=== PATIENT | male | born 1940 | race Caucasian/White ===

== ENCOUNTER 2022-03-04 11:49 | Inpatient (IN) | payer BC, OTHER ==
[2022-03-04] MEDS ORDERED: ACETAMINOPHEN 325 MG TABLET (FP) PO ONE (12:00)
[2022-03-04] MEDS ORDERED: DIPHTH,PERTUSS(ACELL),TET 0.5 ML DISP.SYRIN IM ONE (12:00)
[2022-03-04] MEDS ORDERED: LABETALOL HCL 5 MG/1 ML (100MG/20 ML VIAL) IVPUSH ONE ×3 (14:44→17:30)
[2022-03-04] MEDS ORDERED: LABETALOL HCL 5 MG/1 ML (100MG/20 ML VIAL) ONE (14:44)
[2022-03-04 14:54] LABS: BASO % 0.8 % (0-2.0); EOS % 1.5 % (0-4.5); HEMATOCRIT 47.7 % (35.4-49); HEMOGLOBIN 15.8 GM/dL (11.7-16.9); LYMPH % 11.3 % (8-40); MCH 29.7 pg (25.7-33.7); MCHC 33.1 g/dl (32.0-35.9); MEAN CELL VOLUME 89.7 fl (80-96); MEAN PLT VOLUME 7.7 fl (7.5-11.1); MONO % 8.3 % (3.8-10.2); NEUT % 78.1 % (42.8-82.8); PLATELET COUNT 205 10^3/uL (134-434); RBC 5.32 M/mm3 (4.00-5.60); RDW 14.4 % (11.9-15.9); WHITE BLOOD COUNT 10.2 K/mm3 (4.0-10.0)
[2022-03-04 15:03] LABS: INR 1.03 (0.83-1.09); PROTHROMBIN TIME (PATIENT) 11.9 SEC (9.7-13.0)
[2022-03-04 15:06] LABS: ACTIVATED PTT 31.7 SECONDS (25.2-36.5)
[2022-03-04 15:22] LABS: CALCIUM 8.9 mg/dL (8.5-10.1)
[2022-03-04 15:23] LABS: ALBUMIN 3.5 g/dl (3.4-5.0); BLOOD UREA NITROGEN 35.4 mg/dL (7-18)
[2022-03-04 15:26] LABS: CREATININE 1.7 mg/dL (0.55-1.3)
[2022-03-04 15:27] LABS: TOT PROT 7.4 g/dl (6.4-8.2)
[2022-03-04 15:28] LABS: BILIRUBIN,TOTAL 0.5 mg/dL (0.2-1)
[2022-03-04] MEDS ORDERED: ACETAMINOPHEN 325 MG TABLET (FP) PO PRN (16:01)
[2022-03-04 17:19] LABS: EPI CELLS 1 /uL (0-25.1); HYALINE CASTS 0 /uL (0-3.1); PH,URINE 6.5 (5.0-8.0); URINE APPEARANCE CLEAR; URINE BACTERIA 10 /uL (0-1359); URINE BILIRUBIN NEGATIVE (NEGATIVE); URINE COLOR YELLOW; URINE GLUCOSE (UA) TRACE (NEGATIVE); URINE KETONE NEGATIVE (NEGATIVE); URINE LEUK ESTERASE NEGATIVE (NEGATIVE); URINE NITRITE NEGATIVE (NEGATIVE); URINE PROTEIN 1+ (NEGATIVE); URINE RBC 10 /uL (0-23.9); URINE UROBILINOGEN 0.2 mg/dL (0.2-1.0); URINE WBC 1 /uL (0-25.8)
[2022-03-04] MEDS ORDERED: PNEUMOC 20-VAL CONJ-DIP CRM/PF 0.5 ML SYRINGE IM ONE (20:00)
[2022-03-04] MEDS: MUPIROCIN 2% TOPICAL OINTMENT FOR DECOLONIZATION NS SCH (21:22)
[2022-03-04] MEDS: CHLORHEXIDINE GLUCONATE 4% CLEANSER FOR DECOLONIZATION TP SCH (21:22)
[2022-03-04] MEDS: levETIRAcetam 500 MG TABLET (FP) PO SCH (21:22)
[2022-03-04] MEDS: INSULIN SLIDING SCALE (NOVOLOG) 1 VIAL SQ SCH (21:40)
[2022-03-05] MEDS: INSULIN SLIDING SCALE (NOVOLOG) 1 VIAL SQ SCH ×4 (06:29→21:40)
[2022-03-05] MEDS: LABETALOL HCL 5 MG/1 ML (100MG/20 ML VIAL) IVPUSH PRN ×2 (06:34→18:19)
[2022-03-05 07:26] LABS: BASO % 0.8 % (0-2.0); EOS % 2.1 % (0-4.5); HEMATOCRIT 44.7 % (35.4-49); HEMOGLOBIN 15.1 GM/dL (11.7-16.9); LYMPH % 10.5 % (8-40); MCH 30.5 pg (25.7-33.7); MCHC 33.9 g/dl (32.0-35.9); MEAN CELL VOLUME 90.1 fl (80-96); MEAN PLT VOLUME 7.7 fl (7.5-11.1); MONO % 7.7 % (3.8-10.2); NEUT % 78.9 % (42.8-82.8); PLATELET COUNT 172 10^3/uL (134-434); RBC 4.96 M/mm3 (4.00-5.60); RDW 14.8 % (11.9-15.9); WHITE BLOOD COUNT 10.8 K/mm3 (4.0-10.0)
[2022-03-05 07:31] LABS: BLOOD UREA NITROGEN 32.8 mg/dL (7-18); CALCIUM 8.7 mg/dL (8.5-10.1)
[2022-03-05 07:32] LABS: ALBUMIN 3.3 g/dl (3.4-5.0)
[2022-03-05 07:35] LABS: PHOSPHOROUS 2.9 mg/dL (2.5-4.9)
[2022-03-05 07:36] LABS: BILIRUBIN,TOTAL 0.7 mg/dL (0.2-1); TOT PROT 6.7 g/dl (6.4-8.2)
[2022-03-05 07:37] LABS: CREATININE 1.6 mg/dL (0.55-1.3)
[2022-03-05] MEDS ORDERED: LEVOTHYROXINE NA 112 MCG TABLET (FP) PO ONE (08:45)
[2022-03-05] MEDS ORDERED: LEVOTHYROXINE NA 112 MCG TABLET (FP) PO SCH (09:00)
[2022-03-05] MEDS: levETIRAcetam 500 MG TABLET (FP) PO SCH ×2 (10:03→21:06)
[2022-03-05] MEDS: TORSEMIDE 10 MG TABLET PO SCH (10:04)
[2022-03-05] MEDS: MUPIROCIN 2% TOPICAL OINTMENT FOR DECOLONIZATION NS SCH ×2 (10:05→21:07)
[2022-03-05] MEDS ORDERED: SODIUM CHLORIDE 250 ML IV STA (14:44)
[2022-03-05] MEDS: DONEPEZIL HCL 10 MG TABLET (FP) PO SCH (21:07)
[2022-03-05] MEDS: ATORVASTATIN CA 40 MG TABLET (FP) PO SCH (21:07)
[2022-03-05] MEDS: CHLORHEXIDINE GLUCONATE 4% CLEANSER FOR DECOLONIZATION TP SCH (21:07)
[2022-03-06] MEDS: LEVOTHYROXINE NA 112 MCG TABLET (FP) PO SCH (05:04)
[2022-03-06] MEDS: INSULIN SLIDING SCALE (NOVOLOG) 1 VIAL SQ SCH ×4 (06:12→22:07)
[2022-03-06] MEDS: LABETALOL HCL 5 MG/1 ML (100MG/20 ML VIAL) IVPUSH PRN ×2 (06:30→13:36)
[2022-03-06 07:02] LABS: BASO % 0.8 % (0-2.0); EOS % 2.7 % (0-4.5); HEMATOCRIT 45.8 % (35.4-49); HEMOGLOBIN 15.9 GM/dL (11.7-16.9); LYMPH % 13.8 % (8-40); MCHC 34.7 g/dl (32.0-35.9); MEAN CELL VOLUME 89.4 fl (80-96); MEAN PLT VOLUME 7.9 fl (7.5-11.1); NEUT % 74.7 % (42.8-82.8); PLATELET COUNT 198 10^3/uL (134-434); RBC 5.12 M/mm3 (4.00-5.60); RDW 14.4 % (11.9-15.9); WHITE BLOOD COUNT 10.7 K/mm3 (4.0-10.0)
[2022-03-06 07:27] LABS: ALBUMIN 3.3 g/dl (3.4-5.0); BLOOD UREA NITROGEN 31.5 mg/dL (7-18); CALCIUM 8.4 mg/dL (8.5-10.1); MAGNESIUM 2.1 mg/dL (1.8-2.4)
[2022-03-06 07:30] LABS: CREATININE 1.5 mg/dL (0.55-1.3); PHOSPHOROUS 3.3 mg/dL (2.5-4.9)
[2022-03-06 07:32] LABS: BILIRUBIN,TOTAL 0.7 mg/dL (0.2-1)
[2022-03-06] MEDS: TORSEMIDE 10 MG TABLET PO SCH (09:31)
[2022-03-06] MEDS: MUPIROCIN 2% TOPICAL OINTMENT FOR DECOLONIZATION NS SCH ×2 (09:31→21:57)
[2022-03-06] MEDS: levETIRAcetam 500 MG TABLET (FP) PO SCH ×2 (09:31→21:57)
[2022-03-06] MEDS ORDERED: METOPROLOL TARTRATE 5 MG/5 ML VIAL IVPUSH ONE (09:45)
[2022-03-06] MEDS ORDERED: LABETALOL HCL 5 MG/1 ML (100MG/20 ML VIAL) IVPUSH ONE (10:05)
[2022-03-06] MEDS: amLODIPine BESYLATE 5 MG TABLET (FP) PO SCH (14:04)
[2022-03-06 15:07] VITALS: BMI 29.9
[2022-03-06] MEDS: ATORVASTATIN CA 40 MG TABLET (FP) PO SCH (21:57)
[2022-03-06] MEDS: CHLORHEXIDINE GLUCONATE 4% CLEANSER FOR DECOLONIZATION TP SCH (21:57)
[2022-03-06] MEDS: DONEPEZIL HCL 10 MG TABLET (FP) PO SCH (21:57)
[2022-03-07] MEDS: LEVOTHYROXINE NA 112 MCG TABLET (FP) PO SCH (06:22)
[2022-03-07] MEDS: INSULIN SLIDING SCALE (NOVOLOG) 1 VIAL SQ SCH ×2 (06:26→12:21)
[2022-03-07 06:51] LABS: BASO % 0.8 % (0-2.0); EOS % 0.8 % (0-4.5); HEMATOCRIT 45.7 % (35.4-49); HEMOGLOBIN 15.7 GM/dL (11.7-16.9); LYMPH % 9.5 % (8-40); MCH 30.6 pg (25.7-33.7); MCHC 34.3 g/dl (32.0-35.9); MEAN CELL VOLUME 89.3 fl (80-96); MEAN PLT VOLUME 7.9 fl (7.5-11.1); MONO % 5.4 % (3.8-10.2); NEUT % 83.5 % (42.8-82.8); PLATELET COUNT 181 10^3/uL (134-434); RBC 5.12 M/mm3 (4.00-5.60); RDW 14.5 % (11.9-15.9); WHITE BLOOD COUNT 11.3 K/mm3 (4.0-10.0)
[2022-03-07] MEDS: LABETALOL HCL 5 MG/1 ML (100MG/20 ML VIAL) IVPUSH PRN (07:17)
[2022-03-07 07:18] LABS: CALCIUM 8.2 mg/dL (8.5-10.1)
[2022-03-07 07:19] LABS: ALBUMIN 3.1 g/dl (3.4-5.0); BLOOD UREA NITROGEN 33.8 mg/dL (7-18); MAGNESIUM 2.1 mg/dL (1.8-2.4)
[2022-03-07 07:22] LABS: CREATININE 1.6 mg/dL (0.55-1.3); PHOSPHOROUS 3.4 mg/dL (2.5-4.9)
[2022-03-07 07:23] LABS: TOT PROT 6.6 g/dl (6.4-8.2)
[2022-03-07 07:24] LABS: BILIRUBIN,TOTAL 0.6 mg/dL (0.2-1)
[2022-03-07] MEDS: levETIRAcetam 500 MG TABLET (FP) PO SCH (09:40)
[2022-03-07] MEDS: amLODIPine BESYLATE 5 MG TABLET (FP) PO SCH (09:40)
[2022-03-07] MEDS: MUPIROCIN 2% TOPICAL OINTMENT FOR DECOLONIZATION NS SCH (09:40)
[2022-03-07] MEDS: TORSEMIDE 10 MG TABLET PO SCH (09:40)
[2022-03-07 15:05] VITALS: BP 165/87; PULSE 70; TEMP 98
== END 2022-03-07 15:00 | disposition home health service (06) | DRG 86 ==
LOC: JER 11:49 → JERBED 15:24 → JICU 16:48
PROVIDERS: ADMIT Internal Medicine Pulmonary Disease; ATTEND Nurse Practitioner Acute Care
DX: S06.5X0A Traumatic subdural hemorrhage without loss of consciousness, initial encounter (principal); N17.9 Acute kidney failure, unspecified; I13.0 Hypertensive heart and chronic kidney disease with heart failure and stage 1 through stage 4 chronic kidney disease, or unspecified chronic kidney disease; I50.22 Chronic systolic (congestive) heart failure; Q61.9 Cystic kidney disease, unspecified; S06.6X0A Traumatic subarachnoid hemorrhage without loss of consciousness, initial encounter; E03.9 Hypothyroidism, unspecified; E78.5 Hyperlipidemia, unspecified; I25.10 Atherosclerotic heart disease of native coronary artery without angina pectoris; F03.90 Unspecified dementia, unspecified severity, without behavioral disturbance, psychotic disturbance, mood disturbance, and anxiety; G93.9 Disorder of brain, unspecified; E11.51 Type 2 diabetes mellitus with diabetic peripheral angiopathy without gangrene; E11.22 Type 2 diabetes mellitus with diabetic chronic kidney disease; D32.0 Benign neoplasm of cerebral meninges; S52.124A Nondisplaced fracture of head of right radius, initial encounter for closed fracture; W01.0XXA Fall on same level from slipping, tripping and stumbling without subsequent striking against object, initial encounter; Y92.480 Sidewalk as the place of occurrence of the external cause; Z95.5 Presence of coronary angioplasty implant and graft; Z95.810 Presence of automatic (implantable) cardiac defibrillator
CPT/HCPCS: 0241U-QW; 36415; 70450-TC; 70470-TC; 71260-TC; 72125-TC; 73070-TC-RT-FY; 74177-TC; 76775-TC; 80053; 81003; 82962; 83036; 83735; 84100; 84443; 84484; 85025; 85610; 85730; 86850; 86900; 86901; 90677; 90715; 93005; 93010; 93971-TC; 97116-GP; 97161-GP; 99291; Q9967

== ENCOUNTER 2022-05-03 06:59 | Emergency (ER) | payer OTHER ==
[2022-05-03 08:17] VITALS: BP 154/84; PULSE 92; RESP 17; TEMP 97.8; BMI 30.1
== END 2022-05-03 08:40 | disposition home or self-care (01) ==
LOC: JER 06:59
DX: U07.1 COVID-19 (principal)
CPT/HCPCS: 0241U-QW; 99283-25

== ENCOUNTER 2022-06-10 17:54 | Inpatient (IN) | payer OTHER ==
[2022-06-10] MEDS ORDERED: ALBUTEROL SO4 2.5/IPRATROPIUM 0.5 INH SOL 3 ML VIAL.NEB. NEB ONE ×3 (18:39→21:42)
[2022-06-10 19:52] LABS: EOS % 2.6 % (0-4.5); HEMATOCRIT 44.4 % (35.4-49); HEMOGLOBIN 14.9 GM/dL (11.7-16.9); LYMPH % 18.2 % (8-40); MCH 30.8 pg (25.7-33.7); MCHC 33.4 g/dl (32.0-35.9); MEAN CELL VOLUME 92.2 fl (80-96); MONO % 9.8 % (3.8-10.2); NEUT % 68.4 % (42.8-82.8); PLATELET COUNT 227 10^3/uL (134-434); RBC 4.82 M/mm3 (4.00-5.60); RDW 14.4 % (11.9-15.9)
[2022-06-10 19:56] LABS: INR 1.14 (0.83-1.09); PROTHROMBIN TIME (PATIENT) 13.1 SEC (9.7-13.0)
[2022-06-10 20:01] LABS: VENOUS BASE EXCESS -1.2 mmol/L (-2-2); VENOUS PCO2 47.1 mmHg (38-52); VENOUS PH 7.342 (7.310-7.410)
[2022-06-10] MEDS ORDERED: FUROSEMIDE 40 MG/4 ML INJECTABLE VIAL IVPUSH ONE ×2 (20:02→21:46)
[2022-06-10 20:13] LABS: CALCIUM 8.3 mg/dL (8.5-10.1)
[2022-06-10 20:14] LABS: ALBUMIN 3.1 g/dl (3.4-5.0); BLOOD UREA NITROGEN 32.5 mg/dL (7-18)
[2022-06-10 20:17] LABS: CREATININE 1.9 mg/dL (0.55-1.3)
[2022-06-10 20:18] LABS: BILIRUBIN,TOTAL 0.5 mg/dL (0.2-1); TOT PROT 6.8 g/dl (6.4-8.2)
[2022-06-10] MEDS ORDERED: FUROSEMIDE 40 MG/4 ML INJECTABLE VIAL ONE ×2 (20:21→21:54)
[2022-06-10 20:22] LABS: N-TERMINAL BNP 1737.6 pg/ml (5-450)
[2022-06-10] MEDS ORDERED: methylPREDNISolone NA SUCC 125 MG/2 ML VIAL IVPUSH ONE (21:40)
[2022-06-10] MEDS ORDERED: methylPREDNISolone NA SUCC 125 MG/2 ML VIAL ONE (21:42)
[2022-06-11] MEDS ORDERED: LEVOTHYROXINE NA 112 MCG TABLET (FP) PO SCH (06:00)
[2022-06-11] MEDS: INSULIN SLIDING SCALE (NOVOLOG) 1 VIAL SQ SCH ×4 (06:04→22:18)
[2022-06-11] MEDS: HEPARIN NA (PORCINE) 5,000 UNITS/ML 1ML VIAL SQ SCH ×3 (06:04→22:17)
[2022-06-11 07:41] LABS: HEMATOCRIT 42.7 % (35.4-49); HEMOGLOBIN 14.4 GM/dL (11.7-16.9); MCH 31.1 pg (25.7-33.7); MCHC 33.8 g/dl (32.0-35.9); MEAN CELL VOLUME 91.9 fl (80-96); MEAN PLT VOLUME 7.8 fl (7.5-11.1); PLATELET COUNT 221 10^3/uL (134-434); RBC 4.65 M/mm3 (4.00-5.60); RDW 14.4 % (11.9-15.9)
[2022-06-11 07:52] LABS: CALCIUM 8.2 mg/dL (8.5-10.1)
[2022-06-11 07:53] LABS: BLOOD UREA NITROGEN 31.1 mg/dL (7-18); MAGNESIUM 2.1 mg/dL (1.8-2.4)
[2022-06-11 07:56] LABS: PHOSPHOROUS 3.3 mg/dL (2.5-4.9)
[2022-06-11 07:57] LABS: BILIRUBIN,TOTAL 0.5 mg/dL (0.2-1); TOT PROT 6.6 g/dl (6.4-8.2)
[2022-06-11 08:40] LABS: ANISOCYTOSIS 0; HELMET CELLS 0; HOWELL-JOLLY BODIES 0; MACROCYTOSIS 0; OVALOCYTE 0; ROULEAU 0; SICKELED CELLS 0; TARGET CELLS 0; TEAR DROP CELLS 0; TOXIC GRANULATION 0
[2022-06-11] MEDS ORDERED: FUROSEMIDE 40 MG/4 ML INJECTABLE VIAL IVPUSH SCH ×2 (10:00→22:00)
[2022-06-11] MEDS ORDERED: LEVOTHYROXINE NA 125 MCG TABLET (FP) PO SCH (10:17)
[2022-06-11] MEDS ORDERED: POTASSIUM CHLORIDE TABS 20 MEQ TABLET.ER (FP) PO ONE (15:29)
[2022-06-11] MEDS: SACUBITRIL/VALSARTAN 24 MG-26 MG TABLET PO SCH ×2 (17:10→22:17)
[2022-06-11] MEDS: CARVEDILOL 3.125 MG TABLET (FP) PO SCH (17:10)
[2022-06-11 17:33] VITALS: BMI 30.8
[2022-06-11] MEDS: DONEPEZIL HCL 10 MG TABLET (FP) PO SCH (22:17)
[2022-06-12] MEDS: CARVEDILOL 3.125 MG TABLET (FP) PO SCH ×3 (06:01→21:30)
[2022-06-12] MEDS: HEPARIN NA (PORCINE) 5,000 UNITS/ML 1ML VIAL SQ SCH ×3 (06:02→21:30)
[2022-06-12] MEDS: FUROSEMIDE 40 MG/4 ML INJECTABLE VIAL IVPUSH SCH ×2 (06:03→14:05)
[2022-06-12] MEDS: INSULIN SLIDING SCALE (NOVOLOG) 1 VIAL SQ SCH ×4 (06:03→21:50)
[2022-06-12] MEDS: LEVOTHYROXINE NA 112 MCG TABLET (FP) PO SCH (06:03)
[2022-06-12 07:56] LABS: BLOOD UREA NITROGEN 34.8 mg/dL (7-18); CALCIUM 8.9 mg/dL (8.5-10.1)
[2022-06-12 07:57] LABS: ALBUMIN 3.5 g/dl (3.4-5.0)
[2022-06-12 08:00] LABS: CREATININE 1.9 mg/dL (0.55-1.3)
[2022-06-12 08:01] LABS: BILIRUBIN,TOTAL 0.7 mg/dL (0.2-1); TOT PROT 7.4 g/dl (6.4-8.2)
[2022-06-12] MEDS: SACUBITRIL/VALSARTAN 24 MG-26 MG TABLET PO SCH ×2 (10:01→21:30)
[2022-06-12 14:43] LABS: HEMATOCRIT 45.4 % (35.4-49); HEMOGLOBIN 15.6 GM/dL (11.7-16.9); MCH 31.7 pg (25.7-33.7); MCHC 34.3 g/dl (32.0-35.9); MEAN CELL VOLUME 92.4 fl (80-96); MEAN PLT VOLUME 8.1 fl (7.5-11.1); PLATELET COUNT 237 10^3/uL (134-434); RBC 4.91 M/mm3 (4.00-5.60); RDW 14.7 % (11.9-15.9); WHITE BLOOD COUNT 10.1 K/mm3 (4.0-10.0)
[2022-06-12 15:12] LABS: ALBUMIN 3.3 g/dl (3.4-5.0); CALCIUM 8.7 mg/dL (8.5-10.1); MAGNESIUM 2.2 mg/dL (1.8-2.4)
[2022-06-12 15:15] LABS: CREATININE 1.8 mg/dL (0.55-1.3); PHOSPHOROUS 3.9 mg/dL (2.5-4.9)
[2022-06-12 15:16] LABS: BILIRUBIN,TOTAL 0.6 mg/dL (0.2-1); TOT PROT 6.9 g/dl (6.4-8.2)
[2022-06-12 17:05] LABS: PH,URINE 5.5 (5.0-8.0); URINE APPEARANCE CLEAR; URINE BILIRUBIN NEGATIVE (NEGATIVE); URINE COLOR YELLOW; URINE GLUCOSE (UA) NEGATIVE (NEGATIVE); URINE KETONE NEGATIVE (NEGATIVE); URINE LEUK ESTERASE NEGATIVE (NEGATIVE); URINE NITRITE NEGATIVE (NEGATIVE); URINE PROTEIN NEGATIVE (NEGATIVE); URINE UROBILINOGEN 0.2 mg/dL (0.2-1.0)
[2022-06-12] MEDS: DONEPEZIL HCL 10 MG TABLET (FP) PO SCH (21:30)
[2022-06-13] MEDS: FUROSEMIDE 40 MG/4 ML INJECTABLE VIAL IVPUSH SCH ×2 (06:40→14:52)
[2022-06-13] MEDS: LEVOTHYROXINE NA 112 MCG TABLET (FP) PO SCH (06:40)
[2022-06-13] MEDS: HEPARIN NA (PORCINE) 5,000 UNITS/ML 1ML VIAL SQ SCH ×3 (06:40→21:49)
[2022-06-13] MEDS: INSULIN SLIDING SCALE (NOVOLOG) 1 VIAL SQ SCH ×5 (07:13→22:58)
[2022-06-13 08:24] LABS: HEMATOCRIT 50.3 % (35.4-49); HEMOGLOBIN 16.9 GM/dL (11.7-16.9); MCH 30.7 pg (25.7-33.7); MCHC 33.5 g/dl (32.0-35.9); MEAN CELL VOLUME 91.7 fl (80-96); MEAN PLT VOLUME 8.1 fl (7.5-11.1); PLATELET COUNT 252 10^3/uL (134-434); RBC 5.49 M/mm3 (4.00-5.60); RDW 14.5 % (11.9-15.9)
[2022-06-13 09:49] LABS: ALBUMIN 3.5 g/dl (3.4-5.0); BLOOD UREA NITROGEN 41.3 mg/dL (7-18)
[2022-06-13 09:51] LABS: BILIRUBIN,TOTAL 0.8 mg/dL (0.2-1); TOT PROT 7.4 g/dl (6.4-8.2)
[2022-06-13 09:52] LABS: CREATININE 1.9 mg/dL (0.55-1.3)
[2022-06-13] MEDS: SACUBITRIL/VALSARTAN 24 MG-26 MG TABLET PO SCH ×2 (10:30→21:48)
[2022-06-13] MEDS: CARVEDILOL 3.125 MG TABLET (FP) PO SCH ×2 (10:30→21:48)
[2022-06-13] MEDS: SPIRONOLACTONE 25 MG TABLET PO SCH (15:34)
[2022-06-13] MEDS: DONEPEZIL HCL 10 MG TABLET (FP) PO SCH (21:48)
[2022-06-14] MEDS: HEPARIN NA (PORCINE) 5,000 UNITS/ML 1ML VIAL SQ SCH ×3 (06:17→21:32)
[2022-06-14] MEDS: FUROSEMIDE 40 MG/4 ML INJECTABLE VIAL IVPUSH SCH ×2 (06:18→13:21)
[2022-06-14] MEDS: LEVOTHYROXINE NA 112 MCG TABLET (FP) PO SCH (06:19)
[2022-06-14] MEDS: INSULIN SLIDING SCALE (NOVOLOG) 1 VIAL SQ SCH ×3 (07:27→16:47)
[2022-06-14 07:36] LABS: HEMOGLOBIN 17.2 GM/dL (11.7-16.9); MCH 32.2 pg (25.7-33.7); MCHC 35.7 g/dl (32.0-35.9); MEAN CELL VOLUME 90.2 fl (80-96); MEAN PLT VOLUME 7.8 fl (7.5-11.1); PLATELET COUNT 242 10^3/uL (134-434); RBC 5.33 M/mm3 (4.00-5.60); RDW 14.2 % (11.9-15.9); WHITE BLOOD COUNT 7.6 K/mm3 (4.0-10.0)
[2022-06-14 08:13] LABS: ALBUMIN 3.3 g/dl (3.4-5.0); BLOOD UREA NITROGEN 44.9 mg/dL (7-18); CALCIUM 8.8 mg/dL (8.5-10.1)
[2022-06-14 08:16] LABS: CREATININE 1.9 mg/dL (0.55-1.3)
[2022-06-14 08:18] LABS: BILIRUBIN,TOTAL 0.9 mg/dL (0.2-1); TOT PROT 7.1 g/dl (6.4-8.2)
[2022-06-14] MEDS: SACUBITRIL/VALSARTAN 24 MG-26 MG TABLET PO SCH ×2 (10:14→21:31)
[2022-06-14] MEDS: CARVEDILOL 3.125 MG TABLET (FP) PO SCH ×2 (10:14→21:31)
[2022-06-14] MEDS: SPIRONOLACTONE 25 MG TABLET PO SCH (10:14)
[2022-06-14] MEDS: DONEPEZIL HCL 10 MG TABLET (FP) PO SCH (21:31)
[2022-06-15] MEDS: HEPARIN NA (PORCINE) 5,000 UNITS/ML 1ML VIAL SQ SCH ×3 (05:54→21:30)
[2022-06-15] MEDS: LEVOTHYROXINE NA 112 MCG TABLET (FP) PO SCH (05:55)
[2022-06-15] MEDS: INSULIN SLIDING SCALE (NOVOLOG) 1 VIAL SQ SCH ×4 (07:01→21:36)
[2022-06-15 08:49] LABS: CALCIUM 8.4 mg/dL (8.5-10.1)
[2022-06-15 08:50] LABS: BLOOD UREA NITROGEN 53.8 mg/dL (7-18)
[2022-06-15 08:55] LABS: BILIRUBIN,TOTAL 1.2 mg/dL (0.2-1); TOT PROT 6.4 g/dl (6.4-8.2)
[2022-06-15] MEDS: SPIRONOLACTONE 25 MG TABLET PO SCH (09:29)
[2022-06-15] MEDS: TORSEMIDE 20 MG TABLET (FP) PO SCH (09:29)
[2022-06-15] MEDS: SACUBITRIL/VALSARTAN 24 MG-26 MG TABLET PO SCH ×2 (09:29→21:30)
[2022-06-15] MEDS: CARVEDILOL 3.125 MG TABLET (FP) PO SCH ×2 (09:29→21:30)
[2022-06-15] MEDS ORDERED: POTASSIUM CHLORIDE TABS 20 MEQ TABLET.ER (FP) PO ONE (10:45)
[2022-06-15 11:07] LABS: MAGNESIUM 2.2 mg/dL (1.8-2.4)
[2022-06-15] MEDS: DONEPEZIL HCL 10 MG TABLET (FP) PO SCH (21:30)
[2022-06-16] MEDS: HEPARIN NA (PORCINE) 5,000 UNITS/ML 1ML VIAL SQ SCH ×3 (06:14→22:34)
[2022-06-16] MEDS: LEVOTHYROXINE NA 112 MCG TABLET (FP) PO SCH (06:15)
[2022-06-16] MEDS: INSULIN SLIDING SCALE (NOVOLOG) 1 VIAL SQ SCH ×4 (06:15→22:34)
[2022-06-16 08:29] LABS: ALBUMIN 3.2 g/dl (3.4-5.0); BLOOD UREA NITROGEN 55.3 mg/dL (7-18); CALCIUM 8.4 mg/dL (8.5-10.1); MAGNESIUM 2.2 mg/dL (1.8-2.4)
[2022-06-16 08:32] LABS: CREATININE 2.1 mg/dL (0.55-1.3)
[2022-06-16 08:34] LABS: BILIRUBIN,TOTAL 0.9 mg/dL (0.2-1); TOT PROT 6.7 g/dl (6.4-8.2)
[2022-06-16] MEDS: SPIRONOLACTONE 25 MG TABLET PO SCH (09:21)
[2022-06-16] MEDS: SACUBITRIL/VALSARTAN 24 MG-26 MG TABLET PO SCH ×2 (09:21→22:50)
[2022-06-16] MEDS: TORSEMIDE 20 MG TABLET (FP) PO SCH (09:21)
[2022-06-16] MEDS: CARVEDILOL 3.125 MG TABLET (FP) PO SCH ×2 (09:21→22:34)
[2022-06-16] MEDS: DONEPEZIL HCL 10 MG TABLET (FP) PO SCH (22:34)
[2022-06-17] MEDS: LEVOTHYROXINE NA 112 MCG TABLET (FP) PO SCH (06:29)
[2022-06-17] MEDS: INSULIN SLIDING SCALE (NOVOLOG) 1 VIAL SQ SCH ×4 (06:29→23:16)
[2022-06-17] MEDS: HEPARIN NA (PORCINE) 5,000 UNITS/ML 1ML VIAL SQ SCH ×3 (06:29→23:15)
[2022-06-17] MEDS ORDERED: TORSEMIDE 20 MG TABLET (FP) PO SCH (10:00)
[2022-06-17] MEDS: CARVEDILOL 3.125 MG TABLET (FP) PO SCH ×2 (10:41→23:15)
[2022-06-17] MEDS: SPIRONOLACTONE 25 MG TABLET PO SCH (10:41)
[2022-06-17] MEDS: SACUBITRIL/VALSARTAN 24 MG-26 MG TABLET PO SCH ×2 (10:42→23:15)
[2022-06-17 14:43] LABS: HEMATOCRIT 44.7 % (35.4-49); HEMOGLOBIN 15.4 GM/dL (11.7-16.9); MCH 31.3 pg (25.7-33.7); MCHC 34.4 g/dl (32.0-35.9); MEAN PLT VOLUME 8.2 fl (7.5-11.1); PLATELET COUNT 223 10^3/uL (134-434); RBC 4.91 M/mm3 (4.00-5.60); RDW 14.1 % (11.9-15.9); WHITE BLOOD COUNT 8.6 K/mm3 (4.0-10.0)
[2022-06-17 15:07] LABS: BLOOD UREA NITROGEN 63.2 mg/dL (7-18); CALCIUM 8.8 mg/dL (8.5-10.1)
[2022-06-17 15:08] LABS: ALBUMIN 3.1 g/dl (3.4-5.0)
[2022-06-17 15:10] LABS: CREATININE 2.3 mg/dL (0.55-1.3)
[2022-06-17 15:12] LABS: BILIRUBIN,TOTAL 0.7 mg/dL (0.2-1); TOT PROT 6.5 g/dl (6.4-8.2)
[2022-06-17 23:11] VITALS: RESP 18
[2022-06-17] MEDS: DONEPEZIL HCL 10 MG TABLET (FP) PO SCH (23:15)
[2022-06-18] MEDS: INSULIN SLIDING SCALE (NOVOLOG) 1 VIAL SQ SCH ×3 (06:59→17:01)
[2022-06-18] MEDS: HEPARIN NA (PORCINE) 5,000 UNITS/ML 1ML VIAL SQ SCH ×2 (06:59→15:18)
[2022-06-18] MEDS: LEVOTHYROXINE NA 112 MCG TABLET (FP) PO SCH (06:59)
[2022-06-18] MEDS: CARVEDILOL 3.125 MG TABLET (FP) PO SCH (10:33)
[2022-06-18] MEDS: SACUBITRIL/VALSARTAN 24 MG-26 MG TABLET PO SCH (10:34)
[2022-06-18] MEDS: SPIRONOLACTONE 25 MG TABLET PO SCH (10:34)
[2022-06-18 12:24] LABS: HEMOGLOBIN 15.9 GM/dL (11.7-16.9); MCH 31.3 pg (25.7-33.7); MCHC 33.9 g/dl (32.0-35.9); MEAN CELL VOLUME 92.3 fl (80-96); MEAN PLT VOLUME 8.5 fl (7.5-11.1); PLATELET COUNT 233 10^3/uL (134-434); RBC 5.09 M/mm3 (4.00-5.60); RDW 14.2 % (11.9-15.9); WHITE BLOOD COUNT 8.6 K/mm3 (4.0-10.0)
[2022-06-18 13:28] LABS: ALBUMIN 3.3 g/dl (3.4-5.0)
[2022-06-18 13:32] LABS: BLOOD UREA NITROGEN 54.5 mg/dL (7-18); TOT PROT 6.9 g/dl (6.4-8.2)
[2022-06-18 15:10] VITALS: TEMP 98.6
[2022-06-18 16:24] VITALS: BP 154/85; PULSE 74
[2022-06-19] MEDS ORDERED: TORSEMIDE 20 MG TABLET (FP) PO SCH ×2 (10:00)
== END 2022-06-18 18:21 | disposition home or self-care (01) | DRG 291 ==
LOC: JER 17:54 → JERBED 20:03 → J4W 06-11 01:18 → J5S 06-16 19:10
PROVIDERS: ADMIT Internal Medicine; ATTEND Internal Medicine
DX: I13.0 Hypertensive heart and chronic kidney disease with heart failure and stage 1 through stage 4 chronic kidney disease, or unspecified chronic kidney disease (principal); I50.23 Acute on chronic systolic (congestive) heart failure; N17.9 Acute kidney failure, unspecified; Q61.9 Cystic kidney disease, unspecified; N18.30 Chronic kidney disease, stage 3 unspecified; I25.10 Atherosclerotic heart disease of native coronary artery without angina pectoris; E78.5 Hyperlipidemia, unspecified; E11.51 Type 2 diabetes mellitus with diabetic peripheral angiopathy without gangrene; E03.9 Hypothyroidism, unspecified; F03.90 Unspecified dementia, unspecified severity, without behavioral disturbance, psychotic disturbance, mood disturbance, and anxiety; E11.22 Type 2 diabetes mellitus with diabetic chronic kidney disease; I08.0 Rheumatic disorders of both mitral and aortic valves; R09.02 Hypoxemia; Z95.810 Presence of automatic (implantable) cardiac defibrillator
CPT/HCPCS: 0241U-QW; 36415; 71045-TC-FY; 80053; 80061; 81003; 82570; 82803; 82962; 83036; 83735; 83880; 84100; 84439; 84443; 84484; 84540; 85025; 85027; 85610; 86850; 86900; 86901; 93005; 93010; 93306-TC; 93971-TC; 94761; 97116-GP; 97161-GP; 99285-25; J1644

== ENCOUNTER 2022-11-12 14:52 | Inpatient (IN) | payer OTHER ==
[2022-11-12 15:30] LABS: VENOUS BASE EXCESS -2.7 mmol/L (-2-2); VENOUS O2 SATURATION 52.3 % (70-80); VENOUS PCO2 41.8 mmHg (38-52); VENOUS PH 7.353 (7.310-7.410)
[2022-11-12 15:31] LABS: BASO % 0.9 % (0-2.0); EOS % 1.8 % (0-4.5); HEMATOCRIT 47.3 % (35.4-49); HEMOGLOBIN 15.8 GM/dL (11.7-16.9); LYMPH % 17.2 % (8-40); MCH 30.1 pg (25.7-33.7); MCHC 33.4 g/dl (32.0-35.9); MEAN PLT VOLUME 7.5 fl (7.5-11.1); MONO % 8.2 % (3.8-10.2); NEUT % 71.9 % (42.8-82.8); PLATELET COUNT 235 10^3/uL (134-434); RBC 5.25 M/mm3 (4.00-5.60); RDW 15.6 % (11.9-15.9); WHITE BLOOD COUNT 10.1 K/mm3 (4.0-10.0)
[2022-11-12 15:41] LABS: INR 1.13 (0.83-1.09); PROTHROMBIN TIME (PATIENT) 13.1 SEC (9.7-13.0)
[2022-11-12 15:46] LABS: ACTIVATED PTT 35.6 SECONDS (25.2-36.5)
[2022-11-12 15:58] LABS: CALCIUM 8.6 mg/dL (8.5-10.1)
[2022-11-12 15:59] LABS: ALBUMIN 3.6 g/dl (3.4-5.0); BLOOD UREA NITROGEN 37.3 mg/dL (7-18)
[2022-11-12 16:03] LABS: BILIRUBIN,TOTAL 0.6 mg/dL (0.2-1); TOT PROT 7.7 g/dl (6.4-8.2)
[2022-11-12] MEDS ORDERED: CEFTRIAXONE 1,000 MG in DEXTROSE 5%-WATER - 50 ML IVPB ONE (16:07)
[2022-11-12] MEDS ORDERED: AZITHROMYCIN IVPB 500 MG in DEXTROSE 5%-WATER - 250 ML IVPB ONE (16:07)
[2022-11-12] MEDS ORDERED: CEFTRIAXONE 1 GM/50 ML BAG ONE (16:34)
[2022-11-12] MEDS ORDERED: AZITHROMYCIN IVPB 500 MG/250 ML BAG IVPB ONE (16:34)
[2022-11-12] MEDS ORDERED: FUROSEMIDE 40 MG/4 ML INJECTABLE VIAL IVPUSH ONE (19:58)
[2022-11-12] MEDS ORDERED: ACETAMINOPHEN 325 MG TABLET (FP) PO PRN (20:18)
[2022-11-12] MEDS ORDERED: FUROSEMIDE 40 MG/4 ML INJECTABLE VIAL ONE (21:22)
[2022-11-12] MEDS ORDERED: SACUBITRIL/VALSARTAN 24 MG-26 MG TABLET PO SCH (22:00)
[2022-11-12] MEDS ORDERED: HEPARIN NA (PORCINE) 5,000 UNITS/ML 1ML VIAL ONE (22:59)
[2022-11-12] MEDS ORDERED: CARVEDILOL 3.125 MG TABLET (FP) ONE (22:59)
[2022-11-12] MEDS ORDERED: DONEPEZIL HCL 5 MG TABLET (FP) ONE (22:59)
[2022-11-12] MEDS: DONEPEZIL HCL 10 MG TABLET (FP) PO SCH (23:02)
[2022-11-12] MEDS: HEPARIN NA (PORCINE) 5,000 UNITS/ML 1ML VIAL SQ SCH (23:03)
[2022-11-12] MEDS: CARVEDILOL 3.125 MG TABLET (FP) PO SCH (23:03)
[2022-11-13] MEDS ORDERED: ONDANSETRON 4 MG/2 ML VIAL ONE (03:11)
[2022-11-13] MEDS ORDERED: ONDANSETRON 4 MG/2 ML VIAL IVPUSH ONE (04:07)
[2022-11-13] MEDS ORDERED: FUROSEMIDE 40 MG/4 ML INJECTABLE VIAL IVPUSH SCH ×3 (06:00→10:00)
[2022-11-13] MEDS ORDERED: FUROSEMIDE 40 MG/4 ML INJECTABLE VIAL ONE ×2 (06:06→13:10)
[2022-11-13] MEDS: FUROSEMIDE 40 MG/4 ML INJECTABLE VIAL IVPUSH SCH ×2 (06:07→13:23)
[2022-11-13] MEDS: HEPARIN NA (PORCINE) 5,000 UNITS/ML 1ML VIAL SQ SCH ×3 (06:28→20:59)
[2022-11-13] MEDS: INSULIN SLIDING SCALE (NOVOLOG) 1 VIAL SQ SCH ×3 (07:52→17:02)
[2022-11-13 08:08] LABS: HEMOGLOBIN 16.3 GM/dL (11.7-16.9); MCH 31.5 pg (25.7-33.7); MCHC 35.4 g/dl (32.0-35.9); MEAN CELL VOLUME 88.8 fl (80-96); MEAN PLT VOLUME 7.6 fl (7.5-11.1); PLATELET COUNT 234 10^3/uL (134-434); RBC 5.18 M/mm3 (4.00-5.60); RDW 15.3 % (11.9-15.9); WHITE BLOOD COUNT 10.9 K/mm3 (4.0-10.0)
[2022-11-13 08:34] LABS: CALCIUM 8.6 mg/dL (8.5-10.1)
[2022-11-13 08:35] LABS: ALBUMIN 3.7 g/dl (3.4-5.0); BLOOD UREA NITROGEN 35.3 mg/dL (7-18); MAGNESIUM 2.3 mg/dL (1.8-2.4)
[2022-11-13 08:38] LABS: CREATININE 1.9 mg/dL (0.55-1.3); PHOSPHOROUS 3.3 mg/dL (2.5-4.9)
[2022-11-13 08:39] LABS: BILIRUBIN,TOTAL 1.2 mg/dL (0.2-1); TOT PROT 7.7 g/dl (6.4-8.2)
[2022-11-13] MEDS ORDERED: CARVEDILOL 3.125 MG TABLET (FP) ONE (08:53)
[2022-11-13] MEDS: LEVOTHYROXINE NA 112 MCG TABLET (FP) PO SCH (08:56)
[2022-11-13] MEDS: CARVEDILOL 3.125 MG TABLET (FP) PO SCH ×2 (10:17→21:00)
[2022-11-13] MEDS ORDERED: HEPARIN NA (PORCINE) 5,000 UNITS/ML 1ML VIAL ONE (13:10)
[2022-11-13 14:40] VITALS: BMI 31.2
[2022-11-13] MEDS: DONEPEZIL HCL 10 MG TABLET (FP) PO SCH (21:00)
[2022-11-14] MEDS: FUROSEMIDE 40 MG/4 ML INJECTABLE VIAL IVPUSH SCH ×2 (06:31→13:59)
[2022-11-14] MEDS: HEPARIN NA (PORCINE) 5,000 UNITS/ML 1ML VIAL SQ SCH ×3 (06:31→21:45)
[2022-11-14] MEDS: LEVOTHYROXINE NA 112 MCG TABLET (FP) PO SCH (06:36)
[2022-11-14] MEDS: INSULIN SLIDING SCALE (NOVOLOG) 1 VIAL SQ SCH ×3 (06:49→17:15)
[2022-11-14 07:44] LABS: CALCIUM 8.4 mg/dL (8.5-10.1)
[2022-11-14 07:45] LABS: ALBUMIN 3.6 g/dl (3.4-5.0); BLOOD UREA NITROGEN 42.3 mg/dL (7-18)
[2022-11-14 07:48] LABS: CREATININE 2.2 mg/dL (0.55-1.3)
[2022-11-14 07:49] LABS: TOT PROT 7.5 g/dl (6.4-8.2)
[2022-11-14 08:23] LABS: BASO % 1.1 % (0-2.0); EOS % 1.3 % (0-4.5); HEMOGLOBIN 15.7 GM/dL (11.7-16.9); LYMPH % 17.1 % (8-40); MCH 31.3 pg (25.7-33.7); MEAN CELL VOLUME 89.4 fl (80-96); MEAN PLT VOLUME 8.2 fl (7.5-11.1); MONO % 7.3 % (3.8-10.2); NEUT % 73.2 % (42.8-82.8); PLATELET COUNT 262 10^3/uL (134-434); RBC 5.03 M/mm3 (4.00-5.60); RDW 15.3 % (11.9-15.9); WHITE BLOOD COUNT 9.7 K/mm3 (4.0-10.0)
[2022-11-14] MEDS: CARVEDILOL 3.125 MG TABLET (FP) PO SCH ×2 (10:12→21:45)
[2022-11-14] MEDS ORDERED: KETOCONAZOLE 2% CREAM - 60GM TUBE TP SCH (18:00)
[2022-11-14] MEDS: MICONAZOLE NITRATE 14 GM/TUBE TUBE TP SCH (18:00)
[2022-11-14] MEDS ORDERED: MICONAZOLE NITRATE 28 GM TUBE TP SCH (18:00)
[2022-11-14] MEDS: DONEPEZIL HCL 10 MG TABLET (FP) PO SCH (21:45)
[2022-11-14] MEDS ORDERED: ATORVASTATIN CA 80 MG TABLET (FP) PO SCH (23:15)
[2022-11-15] MEDS: HEPARIN NA (PORCINE) 5,000 UNITS/ML 1ML VIAL SQ SCH ×3 (05:52→21:17)
[2022-11-15] MEDS: INSULIN SLIDING SCALE (NOVOLOG) 1 VIAL SQ SCH ×3 (06:52→16:45)
[2022-11-15] MEDS ORDERED: LEVOTHYROXINE NA 112 MCG TABLET (FP) PO SCH (07:00)
[2022-11-15 07:55] LABS: BASO % 1.2 % (0-2.0); EOS % 1.9 % (0-4.5); HEMATOCRIT 46.4 % (35.4-49); LYMPH % 18.1 % (8-40); MCH 30.9 pg (25.7-33.7); MCHC 34.5 g/dl (32.0-35.9); MEAN CELL VOLUME 89.3 fl (80-96); MONO % 8.2 % (3.8-10.2); NEUT % 70.6 % (42.8-82.8); PLATELET COUNT 230 10^3/uL (134-434); RBC 5.19 M/mm3 (4.00-5.60); RDW 15.6 % (11.9-15.9); WHITE BLOOD COUNT 8.7 K/mm3 (4.0-10.0)
[2022-11-15 08:23] LABS: ALBUMIN 3.5 g/dl (3.4-5.0); PHOSPHOROUS 3.3 mg/dL (2.5-4.9)
[2022-11-15 08:24] LABS: BLOOD UREA NITROGEN 50.7 mg/dL (7-18)
[2022-11-15 08:25] LABS: BILIRUBIN,TOTAL 0.8 mg/dL (0.2-1); TOT PROT 7.5 g/dl (6.4-8.2)
[2022-11-15 08:26] LABS: CALCIUM 8.3 mg/dL (8.5-10.1)
[2022-11-15 08:27] LABS: CREATININE 2.3 mg/dL (0.55-1.3); MAGNESIUM 2.4 mg/dL (1.8-2.4)
[2022-11-15] MEDS: LEVOTHYROXINE NA 150 MCG TABLET PO SCH (08:56)
[2022-11-15] MEDS: CARVEDILOL 3.125 MG TABLET (FP) PO SCH ×2 (09:02→21:17)
[2022-11-15] MEDS ORDERED: TORSEMIDE 20 MG TABLET (FP) PO SCH (10:00)
[2022-11-15] MEDS: MICONAZOLE NITRATE 14 GM/TUBE TUBE TP SCH (10:21)
[2022-11-15] MEDS ORDERED: FUROSEMIDE 40 MG/4 ML INJECTABLE VIAL IVPUSH SCH (14:00)
[2022-11-15] MEDS: ATORVASTATIN CA 40 MG TABLET (FP) PO SCH (21:17)
[2022-11-15] MEDS: DONEPEZIL HCL 10 MG TABLET (FP) PO SCH (21:17)
[2022-11-16] MEDS: LEVOTHYROXINE NA 150 MCG TABLET PO SCH (06:11)
[2022-11-16] MEDS: INSULIN SLIDING SCALE (NOVOLOG) 1 VIAL SQ SCH ×3 (06:11→17:21)
[2022-11-16] MEDS: HEPARIN NA (PORCINE) 5,000 UNITS/ML 1ML VIAL SQ SCH ×3 (06:11→21:36)
[2022-11-16 08:30] LABS: HEMOGLOBIN 16.1 GM/dL (11.7-16.9); MCH 30.1 pg (25.7-33.7); MCHC 33.5 g/dl (32.0-35.9); MEAN CELL VOLUME 89.9 fl (80-96); PLATELET COUNT 267 10^3/uL (134-434); RBC 5.34 M/mm3 (4.00-5.60); RDW 15.4 % (11.9-15.9); WHITE BLOOD COUNT 8.2 K/mm3 (4.0-10.0)
[2022-11-16 08:56] LABS: ALBUMIN 3.4 g/dl (3.4-5.0); CREATININE 1.8 mg/dL (0.55-1.3); PHOSPHOROUS 2.9 mg/dL (2.5-4.9)
[2022-11-16 08:57] LABS: BLOOD UREA NITROGEN 43.1 mg/dL (7-18)
[2022-11-16 08:58] LABS: BILIRUBIN,TOTAL 0.9 mg/dL (0.2-1); TOT PROT 7.2 g/dl (6.4-8.2)
[2022-11-16 08:59] LABS: CALCIUM 8.4 mg/dL (8.5-10.1)
[2022-11-16 09:00] LABS: MAGNESIUM 2.6 mg/dL (1.8-2.4)
[2022-11-16] MEDS: CARVEDILOL 3.125 MG TABLET (FP) PO SCH ×2 (09:19→21:37)
[2022-11-16] MEDS: FUROSEMIDE 40 MG/4 ML INJECTABLE VIAL IVPUSH SCH (09:19)
[2022-11-16] MEDS: MICONAZOLE NITRATE 14 GM/TUBE TUBE TP SCH (09:25)
[2022-11-16] MEDS: POLYETHYLENE GLYCOL (HEALTHYLAX) 3350 17 GM PACKET PO SCH ×2 (13:01→21:39)
[2022-11-16] MEDS: DOCUSATE SODIUM 100 MG CAPSULE (FP) PO SCH (21:36)
[2022-11-16] MEDS: DONEPEZIL HCL 10 MG TABLET (FP) PO SCH (21:37)
[2022-11-16] MEDS: ATORVASTATIN CA 40 MG TABLET (FP) PO SCH (21:37)
[2022-11-17] MEDS: HEPARIN NA (PORCINE) 5,000 UNITS/ML 1ML VIAL SQ SCH ×4 (06:08→21:44)
[2022-11-17] MEDS: LEVOTHYROXINE NA 150 MCG TABLET PO SCH (06:09)
[2022-11-17] MEDS: INSULIN SLIDING SCALE (NOVOLOG) 1 VIAL SQ SCH ×3 (06:42→16:32)
[2022-11-17 08:21] LABS: HEMATOCRIT 43.8 % (35.4-49); HEMOGLOBIN 15.2 GM/dL (11.7-16.9); MCH 30.8 pg (25.7-33.7); MCHC 34.8 g/dl (32.0-35.9); MEAN CELL VOLUME 88.4 fl (80-96); MEAN PLT VOLUME 7.9 fl (7.5-11.1); PLATELET COUNT 233 10^3/uL (134-434); RBC 4.95 M/mm3 (4.00-5.60); RDW 14.9 % (11.9-15.9); WHITE BLOOD COUNT 8.2 K/mm3 (4.0-10.0)
[2022-11-17 08:29] LABS: ALBUMIN 3.2 g/dl (3.4-5.0); BLOOD UREA NITROGEN 41.9 mg/dL (7-18); MAGNESIUM 2.3 mg/dL (1.8-2.4)
[2022-11-17 08:32] LABS: CREATININE 1.8 mg/dL (0.55-1.3); PHOSPHOROUS 2.7 mg/dL (2.5-4.9)
[2022-11-17 08:33] LABS: BILIRUBIN,TOTAL 0.9 mg/dL (0.2-1); TOT PROT 6.8 g/dl (6.4-8.2)
[2022-11-17] MEDS: FUROSEMIDE 40 MG/4 ML INJECTABLE VIAL IVPUSH SCH (09:07)
[2022-11-17] MEDS: CARVEDILOL 3.125 MG TABLET (FP) PO SCH ×3 (09:07→21:44)
[2022-11-17] MEDS: POLYETHYLENE GLYCOL (HEALTHYLAX) 3350 17 GM PACKET PO SCH ×3 (09:07→21:44)
[2022-11-17] MEDS: MICONAZOLE NITRATE 14 GM/TUBE TUBE TP SCH (09:08)
[2022-11-17] MEDS: SPIRONOLACTONE 25 MG TABLET PO SCH (11:38)
[2022-11-17] MEDS: ATORVASTATIN CA 40 MG TABLET (FP) PO SCH ×2 (20:30→21:44)
[2022-11-17] MEDS: DONEPEZIL HCL 10 MG TABLET (FP) PO SCH ×2 (20:30→21:44)
[2022-11-17] MEDS: DOCUSATE SODIUM 100 MG CAPSULE (FP) PO SCH ×2 (20:31→21:44)
[2022-11-18] MEDS: HEPARIN NA (PORCINE) 5,000 UNITS/ML 1ML VIAL SQ SCH ×3 (06:02→21:06)
[2022-11-18] MEDS: INSULIN SLIDING SCALE (NOVOLOG) 1 VIAL SQ SCH ×3 (06:03→17:18)
[2022-11-18] MEDS: LEVOTHYROXINE NA 150 MCG TABLET PO SCH (06:03)
[2022-11-18 08:11] LABS: HEMATOCRIT 41.3 % (35.4-49); HEMOGLOBIN 14.8 GM/dL (11.7-16.9); MCHC 35.8 g/dl (32.0-35.9); MEAN CELL VOLUME 89.4 fl (80-96); MEAN PLT VOLUME 7.5 fl (7.5-11.1); PLATELET COUNT 216 10^3/uL (134-434); RBC 4.62 M/mm3 (4.00-5.60); RDW 15.2 % (11.9-15.9); WHITE BLOOD COUNT 8.4 K/mm3 (4.0-10.0)
[2022-11-18 08:30] LABS: ALBUMIN 3.2 g/dl (3.4-5.0); BLOOD UREA NITROGEN 44.3 mg/dL (7-18); MAGNESIUM 2.3 mg/dL (1.8-2.4)
[2022-11-18 08:33] LABS: PHOSPHOROUS 2.8 mg/dL (2.5-4.9)
[2022-11-18 08:34] LABS: BILIRUBIN,TOTAL 0.9 mg/dL (0.2-1)
[2022-11-18 08:35] LABS: TOT PROT 6.8 g/dl (6.4-8.2)
[2022-11-18] MEDS: FUROSEMIDE 40 MG/4 ML INJECTABLE VIAL IVPUSH SCH (09:16)
[2022-11-18] MEDS: CARVEDILOL 3.125 MG TABLET (FP) PO SCH ×2 (09:16→21:06)
[2022-11-18] MEDS: POLYETHYLENE GLYCOL (HEALTHYLAX) 3350 17 GM PACKET PO SCH ×2 (09:17→21:06)
[2022-11-18] MEDS: SPIRONOLACTONE 25 MG TABLET PO SCH (09:17)
[2022-11-18] MEDS: MICONAZOLE NITRATE 14 GM/TUBE TUBE TP SCH (09:18)
[2022-11-18] MEDS: DONEPEZIL HCL 10 MG TABLET (FP) PO SCH (21:05)
[2022-11-18] MEDS: DOCUSATE SODIUM 100 MG CAPSULE (FP) PO SCH (21:06)
[2022-11-18] MEDS: ATORVASTATIN CA 40 MG TABLET (FP) PO SCH (21:06)
[2022-11-19] MEDS: INSULIN SLIDING SCALE (NOVOLOG) 1 VIAL SQ SCH ×2 (06:44→12:10)
[2022-11-19] MEDS: LEVOTHYROXINE NA 150 MCG TABLET PO SCH (06:44)
[2022-11-19] MEDS: HEPARIN NA (PORCINE) 5,000 UNITS/ML 1ML VIAL SQ SCH ×2 (06:44→13:28)
[2022-11-19] MEDS ORDERED: sitaGLIPtin PHOSPHATE 50 MG TABLET PO SCH (07:00)
[2022-11-19 09:04] VITALS: BP 123/68; PULSE 65; RESP 22; TEMP 97.3
[2022-11-19] MEDS: SPIRONOLACTONE 25 MG TABLET PO SCH (09:28)
[2022-11-19] MEDS: POLYETHYLENE GLYCOL (HEALTHYLAX) 3350 17 GM PACKET PO SCH (09:28)
[2022-11-19] MEDS: FUROSEMIDE 40 MG/4 ML INJECTABLE VIAL IVPUSH SCH (09:28)
[2022-11-19] MEDS: CARVEDILOL 3.125 MG TABLET (FP) PO SCH (09:28)
[2022-11-19] MEDS: MICONAZOLE NITRATE 14 GM/TUBE TUBE TP SCH (09:47)
== END 2022-11-19 15:09 | DRG 291 ==
LOC: JER 14:52 → JERBED 19:59 → J4W 11-13 14:02
PROVIDERS: ADMIT Internal Medicine; ATTEND Internal Medicine
DX: I13.0 Hypertensive heart and chronic kidney disease with heart failure and stage 1 through stage 4 chronic kidney disease, or unspecified chronic kidney disease (principal); I50.33 Acute on chronic diastolic (congestive) heart failure; N17.9 Acute kidney failure, unspecified; I25.10 Atherosclerotic heart disease of native coronary artery without angina pectoris; Z95.810 Presence of automatic (implantable) cardiac defibrillator; Z98.2 Presence of cerebrospinal fluid drainage device; E78.5 Hyperlipidemia, unspecified; E11.51 Type 2 diabetes mellitus with diabetic peripheral angiopathy without gangrene; F03.90 Unspecified dementia, unspecified severity, without behavioral disturbance, psychotic disturbance, mood disturbance, and anxiety; E03.9 Hypothyroidism, unspecified; R13.10 Dysphagia, unspecified; I44.5 Left posterior fascicular block; I45.10 Unspecified right bundle-branch block; E11.22 Type 2 diabetes mellitus with diabetic chronic kidney disease; I50.9 Heart failure, unspecified; E66.01 Morbid (severe) obesity due to excess calories; Z91.14 Patient's other noncompliance with medication regimen; J44.9 Chronic obstructive pulmonary disease, unspecified; N18.30 Chronic kidney disease, stage 3 unspecified
CPT/HCPCS: 0241U-QW; 36415; 71045-TC-FY; 71275-TC; 80048; 80053; 80061; 82803; 82962; 83036; 83735; 83880; 84100; 84439; 84443; 84481; 84484; 85025; 85027; 85379; 85610; 85730; 93005; 93010; 93971-TC; 94660; 94761; 97116-GP; 97162-GP; 99285-25; C9803-CS; J1644; Q9967; U0003; U0005

== ENCOUNTER 2022-12-06 18:21 | Observation (INO) | payer OTHER ==
[2022-12-06 18:37] VITALS: RESP 18
[2022-12-06 21:47] LABS: BASO % 0.9 % (0-2.0); EOS % 2.9 % (0-4.5); HEMOGLOBIN 16.1 GM/dL (11.7-16.9); LYMPH % 15.8 % (8-40); MCH 30.8 pg (25.7-33.7); MCHC 34.2 g/dl (32.0-35.9); MEAN CELL VOLUME 90.2 fl (80-96); MEAN PLT VOLUME 7.3 fl (7.5-11.1); MONO % 7.5 % (3.8-10.2); NEUT % 72.9 % (42.8-82.8); PLATELET COUNT 235 10^3/uL (134-434); RBC 5.21 M/mm3 (4.00-5.60); RDW 15.3 % (11.9-15.9); WHITE BLOOD COUNT 11.6 K/mm3 (4.0-10.0)
[2022-12-06 22:14] LABS: CALCIUM 9.5 mg/dL (8.5-10.1)
[2022-12-06 22:15] LABS: ALBUMIN 3.9 g/dl (3.4-5.0); BLOOD UREA NITROGEN 57.4 mg/dL (7-18); MAGNESIUM 2.3 mg/dL (1.8-2.4)
[2022-12-06 22:18] LABS: CREATININE 2.2 mg/dL (0.55-1.3); PHOSPHOROUS 4.5 mg/dL (2.5-4.9)
[2022-12-06 22:19] LABS: BILIRUBIN,TOTAL 0.6 mg/dL (0.2-1); TOT PROT 7.9 g/dl (6.4-8.2)
[2022-12-07 04:10] VITALS: BMI 30.1
[2022-12-07] MEDS: HEPARIN NA (PORCINE) 5,000 UNITS/ML 1ML VIAL SQ SCH ×2 (07:11→14:41)
[2022-12-07] MEDS ORDERED: LEVOTHYROXINE 112 MCG, LEVOTHYROXINE 25 MCG PO SCH (07:30)
[2022-12-07 09:41] LABS: BASO % 0.6 % (0-2.0); EOS % 2.8 % (0-4.5); HEMOGLOBIN 14.9 GM/dL (11.7-16.9); LYMPH % 13.7 % (8-40); MCH 31.6 pg (25.7-33.7); MCHC 36.4 g/dl (32.0-35.9); MEAN CELL VOLUME 86.9 fl (80-96); MEAN PLT VOLUME 7.4 fl (7.5-11.1); MONO % 5.9 % (3.8-10.2); PLATELET COUNT 211 10^3/uL (134-434); RBC 4.72 M/mm3 (4.00-5.60); RDW 14.8 % (11.9-15.9)
[2022-12-07] MEDS ORDERED: ASPIRIN 81 MG CHEWABLE TABLETS PO SCH (10:00)
[2022-12-07] MEDS ORDERED: PATIENT'S OWN MEDICATION (NON-FORMULARY) (Levothyroxine Sodium [Levothyroxine] 137 MCG Cap PO SCH (10:00)
[2022-12-07] MEDS ORDERED: SPIRONOLACTONE 25 MG TABLET PO SCH (10:00)
[2022-12-07] MEDS ORDERED: SACUBITRIL/VALSARTAN 24 MG-26 MG TABLET PO SCH (10:00)
[2022-12-07] MEDS ORDERED: CARVEDILOL 3.125 MG TABLET (FP) PO SCH (10:00)
[2022-12-07] MEDS ORDERED: TORSEMIDE 20 MG TABLET (FP) PO SCH (10:00)
[2022-12-07 10:10] LABS: BLOOD UREA NITROGEN 55.1 mg/dL (7-18)
[2022-12-07 10:11] LABS: ALBUMIN 3.4 g/dl (3.4-5.0); MAGNESIUM 2.1 mg/dL (1.8-2.4)
[2022-12-07 10:14] LABS: CREATININE 2.1 mg/dL (0.55-1.3); PHOSPHOROUS 2.9 mg/dL (2.5-4.9); TOT PROT 6.9 g/dl (6.4-8.2)
[2022-12-07 10:18] LABS: BILIRUBIN,TOTAL 0.8 mg/dL (0.2-1)
[2022-12-07 14:38] VITALS: BP 102/67; PULSE 68; TEMP 97.4
[2022-12-07] MEDS ORDERED: ATORVASTATIN CA 40 MG TABLET (FP) PO SCH (22:00)
[2022-12-07] MEDS ORDERED: DONEPEZIL HCL 10 MG TABLET (FP) PO SCH (22:00)
== END 2022-12-07 15:53 | disposition home or self-care (01) ==
LOC: JER 18:21 → JERBED 23:18 → UNDOADMOB 23:18 → OBSVTOIN 12-07 01:08 → INTOOBSV 12-07 01:08 → JERBED 12-07 01:16 → J6S 12-07 03:00 → JERBED 12-07 03:00 → J6S 12-07 03:00 → UNDODISOB 12-07 15:53
PROVIDERS: ADMIT Internal Medicine; ATTEND Internal Medicine
PROC: 3E023GC Introduction of Other Therapeutic Substance into Muscle, Percutaneous Approach (ICD-10-PCS; principal; 2022-12-07)
DX: R53.1 Weakness (principal); I25.10 Atherosclerotic heart disease of native coronary artery without angina pectoris; W18.39XA Other fall on same level, initial encounter; Y93.89 Activity, other specified; Y92.89 Other specified places as the place of occurrence of the external cause; I11.9 Hypertensive heart disease without heart failure; R26.2 Difficulty in walking, not elsewhere classified; Z95.810 Presence of automatic (implantable) cardiac defibrillator; F03.90 Unspecified dementia, unspecified severity, without behavioral disturbance, psychotic disturbance, mood disturbance, and anxiety; E78.5 Hyperlipidemia, unspecified; E11.9 Type 2 diabetes mellitus without complications; I73.9 Peripheral vascular disease, unspecified
CPT/HCPCS: 36415; 70450-TC; 71046-TC-FY; 72125-TC; 72170-TC-FY; 80053; 82550; 83735; 84100; 84484; 85025; 86850; 86900; 86901; 93005; 93010; 93970-TC; 96372; 97116-GP; 97161-GP; 99285-25; C9803-CS; G0378; J1644; U0003; U0005